=== PATIENT | male | born 1995 | race Caucasian/White ===

== ENCOUNTER 2017-01-27 19:29 | Emergency (ER) | payer BC ==
[~2017-01-27] VITALS: Ht 167.6 cm; Wt 67.5 kg
[2017-01-27 19:36] VITALS: BP 147/85; PULSE 63; RESP 16; TEMP 98.3; O2SAT 97
--- NOTE | 2017-01-27 20:26 | PD ---
HPI Chief Complaint: Foreign Body Time Seen by Provider: 20:05 Travel History International Travel<30 days: No Contact w/Intl Traveler<30days: No Traveled to known affect area: No History of Present Illness HPI 21-year-old male presents to the emergency room for evaluation of foreign body sensation in his throat for the past several hours. Patient states at 3:00 last night he ate chicken, rice, and pasta. While eating he felt like he got a large chunk of food caught in his throat and was unable to swallow it. Since then he has not been able to eat or drink anything except extremely small sips of water. He has tried drinking Coca-Cola and Sprite without relief in symptoms. Patient is spitting into a bottle because it is difficult to swallow his spit. Patient states this has happened to him often since he was 9 years old. States it is only lasted this long one other time that resolved on its own. He was unable to get help at that time because he did not have insurance. He denies difficulty breathing. No chronic medical conditions or daily medications. PFSH Past Medical History GERD: Yes Tetanus Vaccination: > 5 Years Influenza Vaccination: No Past Surgical History Surgical History: No Previous Surgery Social History Alcohol Use: Yes (occasionally) Tobacco Use: No Substance Use: No Allergies-Medications (Allergen,Severity, Reaction): Coded Allergies: No Known Allergies (Unverified , 01/27/17) Reported Meds & Prescriptions Reported Meds & Active Scripts Active No Active Prescriptions or Reported Medications Review of Systems Except as stated in HPI: all other systems reviewed are Neg Physical Exam Narrative GENERAL: Well-nourished, well-developed male in no acute distress. Afebrile. Ambulatory. SKIN: Focused skin assessment warm/dry. HEAD: Normocephalic. EYES: No scleral icterus. No injection or drainage. ENT: Mucosa pink and moist. Mild erythema without edema or exudates. No uvular edema. No uvular, palatal, or tonsillar deviation. Airway patent. Nasal turbinates appear normal without nasal blood, purulent drainage or septal hematoma. NECK: Supple, trachea midline. No JVD or lymphadenopathy. CARDIOVASCULAR: Regular rate and rhythm without murmurs, gallops, or rubs. RESPIRATORY: Breath sounds equal bilaterally. No accessory muscle use. Data Data Last Documented VS Vital Signs Date Time Temp Pulse Resp B/P (MAP) Pulse Ox O2 Delivery O2 Flow Rate FiO2 01/27/17 19:36 98.3 63 16 147/85 (105) 97 MDM Medical Decision Making Medical Screen Exam Complete: Yes Emergency Medical Condition: Yes Medical Record Reviewed: Yes Differential Diagnosis Achalasia, foreign body, esophageal dysfunction Narrative Course 21-year-old male presents to the emergency room for evaluation of dysphasia for the past several hours. Patient states at 3:00 last night he was trying to swallow his food and developed a sensation of food bolus stuck in his throat. He has not been able to swallow spit, food, or beverage since then. Patient is afebrile and well-appearing in the emergency room. Resting comfortably. In no acute distress. No evidence of foreign body in pharynx. He is spitting into a bottle of water. Call was placed for GI specialist. Patient was given a small cup of water to try to ingest. He took a small sip of water and reported immediate relief in symptoms. Patient's symptoms completely resolved while in the ED. The call was canceled due to the GI specialist. Patient was reassured and told to follow up with primary care physician for outpatient referral to GI for swallow study and or EGD. Told to return to the emergency room for worsening symptoms. He understands and agrees to plan. Diagnosis Primary Impression: Dysphagia Qualified Codes: R13.14 - Dysphagia, pharyngoesophageal phase Referrals: Primary Care Physician Additional Instructions: Follow-up with a primary care physician for referral to a GI specialist. Return to the emergency room for worsening symptoms. Scripts No Active Prescriptions or Reported Meds Disposition: 01 DISCHARGE HOME Condition: Stable [facility] Jan 27, 2017 20:26
== END 2017-01-27 20:31 | disposition home or self-care (01) ==
LOC: PHEFT 19:29
DX: R13.14 Dysphagia, pharyngoesophageal phase (principal); Z87.19 Personal history of other diseases of the digestive system
CPT/HCPCS: 99281